=== PATIENT | female | born 1990 | race Caucasian/White ===

== ENCOUNTER 2017-05-09 09:22 | Outpatient (CLI) | payer MEDICAID ==
[2017-05-09 11:57] VITALS: BP 117/67
== END 2017-05-09 13:15 | disposition home or self-care (01) ==
LOC: TRG 09:22
PROVIDERS: ATTEND Obstetrics & Gynecology
DX: O48.0 Post-term pregnancy (principal); Z3A.40 40 weeks gestation of pregnancy
CPT/HCPCS: 59025

== ENCOUNTER 2017-05-13 00:25 | Inpatient (IN) | payer MEDICAID ==
[2017-05-13] MEDS ORDERED: NORMOSOL-R PH 7.4 2,000 ML IV ONE (01:08)
[2017-05-13] MEDS ORDERED: ePHEDrine SULFATE IV PRN ×2 (01:12→02:39)
[2017-05-13] MEDS ORDERED: BRETHINE IVP PRN (01:12)
[2017-05-13] MEDS ORDERED: BRETHINE SUB-Q PRN (01:12)
[2017-05-13] MEDS ORDERED: SUBLIMAZE IV PRN (01:17)
[2017-05-13 01:39] LABS: Hematocrit 30.9 % (30.3-42.9); Mean Corpuscular HGB Conc 32 % (30-34); Mean Corpuscular Volume 73 fl (79-97); Platelet Count 209 K/mm3 (140-440); Red Blood Count 4.25 M/mm3 (3.65-5.03); Red Cell Distribution Width 17.2 % (13.2-15.2)
[2017-05-13 01:41] LABS: Mean Corpuscular Hemoglobin 24 pg (28-32)
[2017-05-13] MEDS ORDERED: NORMOSOL-R PH 7.4 1,000 ML IV SCH (02:00)
[2017-05-13] MEDS ORDERED: XYLOCAINE 2% INFILTRATI ONE (02:13)
[2017-05-13] MEDS ORDERED: XYLOCAINE MPF 2% ONE ×2 (02:19→02:21)
[2017-05-13] MEDS ORDERED: MINERAL OIL PO PRN (02:39)
[2017-05-13] MEDS ORDERED: LANSINOH TP PRN (02:41)
[2017-05-13] MEDS ORDERED: DULCOLAX PR PRN (02:41)
[2017-05-13] MEDS ORDERED: NORCO 5/325 PO PRN (02:41)
[2017-05-13] MEDS ORDERED: BENADRYL PO PRN (02:41)
[2017-05-13] MEDS ORDERED: TUCKS PAD TP PRN (02:41)
[2017-05-13] MEDS: PITOCin/NS 20 UNIT/1000ML DRIP 20 UNITS/1,000 ML BAG IV SCH ×2 (02:44→03:22)
[2017-05-13] MEDS: MINERAL OIL PO PRN ×2 (02:44→02:46)
--- NOTE | 2017-05-13 02:50 | History and Physical Report ---
History of Present Illness Date of examination: 05/13/17 Date of admission: 05/13/17 01:00 Chief complaint: Intense Labor Pains History of present illness: Early entry to care, some care at [facility] and some at [facility]. course is unremarkakle. States GBS was done at [facility] and states it is Negative. Past History Past Medical History: other (hx of depression) Past Surgical History: no surgical history Family/Genetic History: heart disease (family hx of heart murmur) Social history: no significant social history, single - Obstetrical History Expected Date of Delivery: 05/06/17 Actual Gestation: 41 Week(s) 0 Day(s) : 3 Para: 2 Hx # Term Pregnancies: 2 Number of Living Children: 2 #1 Infant Gender: Male year: 2,013 Birthweight: 3.345 kg Method of Delivery: Vaginal Gestational age at delivery: 41 Complications: none #2 Gender: Female year: 2,015 Birthweight: 3.175 kg Method of Delivery: Vaginal Complications: none Medications and Allergies Allergies Allergy/AdvReac Type Severity Reaction Status Date / Time No Known Allergies Allergy Unverified 08/03/14 03:51 Home Medications Medication Instructions Recorded Confirmed Last Taken Type Pnv,Calcium 72/Iron/Folic Acid 1 tab PO DAILY 08/03/14 05/13/17 1 Day Ago History [ Vitamin with Low Iron] ~05/12/17 Active Meds: Active Medications Acetaminophen/Hydrocodone Bitart ([place] 5/325) 2 each PO Q6H PRN PRN Reason: Pain, Moderate (4-6) Bisacodyl (Dulcolax) 10 mg SD BID PRN PRN Reason: Constipation Diphenhydramine HCl (Benadryl) 25 mg PO Q6H PRN PRN Reason: Itching Ephedrine Sulfate (Ephedrine Sulfate) 10 mg IV Q2M PRN PRN Reason: Hypotension Ephedrine Sulfate (Ephedrine Sulfate) 10 mg IV Q2M PRN PRN Reason: Hypotension Fentanyl (Sublimaze) 100 mcg IV Q2H PRN PRN Reason: Labor pain Ferrous Sulfate (Feosol) 325 mg PO BID DELIA Parenteral Electrolytes (Normosol-R Ph 7.4) 1,000 mls @ 125 mls/hr IV DIRECT DELIA Oxytocin/Sodium Chloride (Pitocin/Ns 20 Unit/1000ml Drip) 20 units in 1,000 mls @ 125 mls/hr IV DIRECT DELIA Ibuprofen (Motrin) 600 mg PO Q6H DELIA Mineral Oil (Mineral Oil) 30 ml PO QHS PRN PRN Reason: Constipation Mineral Oil (Mineral Oil) 30 ml PO QHS PRN PRN Reason: Constipation Multi-Ingredient Ointment (Lansinoh) 1 applic TP PRN PRN PRN Reason: Sore Nipples Multivitamins/Iron/Calcium ( Vitamin) 1 each PO QDAY DELIA Sodium Chloride (Sodium Chloride Flush Syringe 10 Ml) 10 ml IV PRN NR Witch Dunia/Glycerin (Tucks Pad) 1 each TP PRN PRN PRN Reason: Hemorrhoid/cleansing/soothing Review of Systems All systems: negative - Vital Signs Vital signs: Vital Signs Temp Resp BP 99.3 F 22 138/61 05/13/17 01:26 05/13/17 01:26 05/13/17 01:26 Temp Pulse Resp BP Pulse Ox 99.3 F 93 H 22 113/56 05/13/17 01:26 05/13/17 02:45 05/13/17 01:26 05/13/17 02:45 - Physical Exam Breasts: Positive: normal Cardiovascular: Regular rate Lungs: Positive: Clear to auscultation, Normal air movement Abdomen: Positive: normal appearance, soft, normal bowel sounds Genitourinary (Female): Positive: normal external genitalia, normal perenium Vagina: Positive: normal moisture Uterus: Positive: enlarged Anus/Rectum: Positive: normal perianal skin Extremities: Positive: normal - Obstetrical FHR: category 1 Uterine Contraction Monitor Mode: External Cervical Dilatation: 9 (Clear fluid upon AROM) Cervical Effacement Percentage: 100 station: 0 Uterine Contraction Pattern: Regular Uterine Tone Measurement Phase: Resting Uterine Contraction Intensity: Strong/Firm Results Result Diagrams: 05/13/17 01:00 Abnormal lab results 05/13/17 Range/Units 01:00 Hgb 10.0 L (10.1-14.3) gm/dl MCV 73 L (79-97) fl MCH 24 L (28-32) pg RDW 17.2 H (13.2-15.2) % All other labs normal. Assessment and Plan A: IUP @ 41 Weeks Active Labor Category I Tracing GBS Unknown P: Admit to L&D per routine orders Expect
--- NOTE | 2017-05-13 02:59 | Procedure Note ---
OB Delivery Note - Delivery Date of Delivery: 05/13/17 (0206) Surgeon: AYLIN DIAZ Estimated blood loss: 300cc - Vaginal Delivery presentation: vertex Delivery position: OA Delivery induction: none Delivery augmentation: rupture of membranes Delivery monitor: external FHT, external uterine Route of delivery: Delivery placenta: spontaneous Delivery cord: nuchal cord, 3 umbilical vessels Episiotomy: none Delivery laceration: 1st degree Delivery repair: vicryl Anesthesia: local Delivery comments: of a live 9'3 female over a 1st degree perineal laceration under IV pain control with Apgars of 3 and 9 at 0206 on 05/13/2017. Nuchal cord x 1 easily manually reduced on the perineum prior to delivery of the anterior shoulder. Cord double clamped and cut by TOM Diaz, and placed on warmer. Cord blood gasses collected X 2. Spontaneous delivery of placenta complete and intact with Franco side presenting at 0211. Fundus is firm and midline located 4 below the U. Lochia is scant. Perineal laceration repaired with 2-[address]-1 under local 2% Lidocaine. - A at 1 minute: 3 at 5 minutes: 9 Infant Gender: Female
[2017-05-13] MEDS ORDERED: XYLOCAINE MPF 2% INFILTRATI ONE (03:00)
[2017-05-13] MEDS ORDERED: SODIUM CHLORIDE FLUSH SYRINGE 10 ML IV PRN (03:00)
[2017-05-13] MEDS: MOTRIN PO SCH ×2 (11:31→17:10)
[2017-05-13] MEDS: FEOSOL PO SCH ×2 (11:31→22:55)
[2017-05-13] MEDS: PRENATAL VITAMIN PO SCH (11:31)
[2017-05-13 14:27] LABS: Hematocrit 32.1 % (30.3-42.9); Hemoglobin 10.4 gm/dl (10.1-14.3)
[2017-05-14] MEDS: MOTRIN PO SCH ×3 (00:32→12:45)
[2017-05-14] MEDS ORDERED: M-M-R II VACCINE SUB-Q ONE (08:00)
--- NOTE | 2017-05-14 09:30 | Progress Note ---
Assessment and Plan - Patient Problems (1) (normal spontaneous vaginal delivery) Current Visit: Yes Status: Acute Plan to address problem: PPD 2 - stable Discharge home 05/15/17 F/U at [facility] in 6 weeks for PP exam Subjective - Subjective Date of service: 05/14/17 Principal diagnosis: Normal Spontaneous Vaginal Delivery Patient reports: appetite normal, voiding normally, pain well controlled, ambulating normally : in NICU Objective - Vital Signs Latest vital signs: Vital Signs Temp Pulse Resp BP BP Pulse Ox 05/14/17 07:54 98.0 F 77 18 92/54 96 05/14/17 00:05 98.2 F 84 16 123/52 05/13/17 16:20 98.2 F 18 102/54 05/13/17 12:50 99.2 F 18 105/56 Intake and Output 05/13/17 05/14/17 05/14/17 23:59 07:59 15:59 Intake Total 480 120 Output Total 800 Balance -320 120 Intake: Oral 240 Intake, Free Water 240 120 Output: Urine 800 Void 800 Other: Total, Intake Amount 240 Total, Output Amount 800 # Voids Void 1 1 - Exam Cardiovascular: Present: Regular rate, Normal S1, Normal S2, No murmurs Lungs: Present: Clear to auscultation, Normal air movement Abdomen: Present: normal appearance, soft Vulva: both: laceration/episiotomy Uterus: Present: normal, firm, fundal height below umbilicus Extremities: Present: normal Deep Tendon Reflex Grade: Normal +2
--- NOTE | 2017-05-14 09:31 | Discharge Summary ---
Providers - Providers Date of Admission: 05/13/17 01:00 Date of discharge: 05/15/17 Attending physician: LISA CARDONA MD Primary care physician: LISA CARDONA MD Hospitalization Reason for admission: active labor, IUP at term Delivery: Episiotomy: none Laceration: 1st degree (perineal) Other procedures: none complications: none Discharge diagnosis: IUP at term delivered baby: female Hospital course: Uncomplicated Condition at discharge: Stable Disposition: DC-01 TO HOME OR SELFCARE - Discharge Diagnoses (1) (normal spontaneous vaginal delivery) Status: Acute Plan - Provider Discharge Summary Activity: routine, no sex for 6 weeks, no heavy lifting 4 weeks, no strenuous exercise Diet: routine Instructions: routine Additional instructions: [] Smoking cessation referral if applicable(refer to patient education folder for contact #) [] Refer to [facility]'s [facility] Booklet Call your doctor immediately for: * Fever > 100.5 * Heavy vaginal bleeding ( >1 pad per hour) * Severe persistent headache * Shortness of breath * Reddened, hot, painful area to leg or breast * Drainage or odor from incision. * Keep incision clean and dry at all times and follow doctor's instructions regarding bathing/showering - Follow up plan Follow up: LISA CARDONA MD [Primary Care Provider] - 6 Weeks (Follow up at [facility] in 6 weeks for PP exam)
[2017-05-14] MEDS: PRENATAL VITAMIN PO SCH (11:01)
[2017-05-14] MEDS: FEOSOL PO SCH (11:01)
[2017-05-15] MEDS: FEOSOL PO SCH (00:16)
[2017-05-15] MEDS: MOTRIN PO SCH ×2 (00:18→06:46)
[2017-05-15] MEDS ORDERED: M-M-R II VACCINE SUB-Q ONE (06:00)
[2017-05-15 08:47] VITALS: BP 109/68
== END 2017-05-15 11:00 | disposition home or self-care (01) | DRG 775 ==
LOC: TRG 00:25 → LD 01:00 → OB 04:35
PROVIDERS: ADMIT Obstetrics & Gynecology; ATTEND Obstetrics & Gynecology
PROC: 10E0XZZ Delivery of Products of Conception, External Approach (ICD-10-PCS; principal; 2017-05-13)
PROC: 3E0234Z Introduction of Serum, Toxoid and Vaccine into Muscle, Percutaneous Approach (ICD-10-PCS; 2017-05-13)
PROC: 0HQ9XZZ Repair Perineum Skin, External Approach (ICD-10-PCS; 2017-05-13)
DX: O69.81X0 Labor and delivery complicated by cord around neck, without compression, not applicable or unspecified (principal); O70.0 First degree perineal laceration during delivery; Z3A.41 41 weeks gestation of pregnancy; Z37.0 Single live birth; Z23 Encounter for immunization; O99.344 Other mental disorders complicating childbirth; F32.9 Major depressive disorder, single episode, unspecified
CPT/HCPCS: 36415; 82803; 85014; 85018; 85027; 86592; 86850; 86900; 86901; 90471; 90707; 99211; G0463; J2590

== ENCOUNTER 2019-02-27 18:55 | Outpatient (CLI) | payer MEDICAID ==
[2019-02-27 19:49] VITALS: BP 114/53
--- NOTE | 2019-02-27 21:50 | Ultrasound Report ---
OB Ultrasound Biophysical profile HISTORY: DECREASED FM. TECHNIQUE: Grayscale and color Doppler imaging performed. COMPARISON: No recent comparison exam available FINDINGS: There is a single viable intrauterine gestation which is cephalic in presentation. MITCHELL is 9 cm. Placenta is right lateral in position. Heart rate is 133 bpm. On biophysical profile, the fetus received a score of 2 out of 2 for movement, breathing, tone, and A FI. Total score was 8 out of 8. IMPRESSION: 1. Single viable intrauterine gestation as above. 2. Normal BPP. Signer Name: Nas Smith MD Signed: 02/27/2019 9:45 PM Workstation Name: [id number]
== END 2019-02-27 22:01 | disposition home or self-care (01) ==
LOC: TRG 18:55 → LD 19:00 → TRG 19:35
PROVIDERS: ATTEND Obstetrics & Gynecology
DX: O36.8130 Decreased fetal movements, third trimester, not applicable or unspecified (principal); Z3A.40 40 weeks gestation of pregnancy
CPT/HCPCS: 59025; 76815; 76819

== ENCOUNTER 2019-03-07 08:46 | Inpatient (IN) | payer MEDICAID ==
[2019-03-07] MEDS ORDERED: LACTATED RINGERS 1,000 ML ONE (09:05)
[2019-03-07] MEDS ORDERED: MINERAL OIL 30 ML ORAL LIQD PO PRN (10:18)
[2019-03-07] MEDS ORDERED: TERBUTALINE 1 MG/1 ML INJ SUB-Q PRN (10:18)
[2019-03-07] MEDS ORDERED: LIDOCAINE (2%) 20 MG/1 ML VIAL 20 ML MDV INFILTRATI ONE (10:18)
[2019-03-07] MEDS ORDERED: BUTORPHANOL 2 MG/1 ML INJ IV PRN (10:18)
[2019-03-07] MEDS ORDERED: ePHEDrine SULFATE 50 MG/1 ML INJ IV PRN ×2 (10:18→20:12)
[2019-03-07] MEDS ORDERED: fentaNYL 100 MCG/2 ML INJ IV PRN (10:18)
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
[2019-03-07] MEDS ORDERED: OXYTOCIN 20 UNIT/1000ML DRIP 20 UNITS/1,000 ML BAG IV SCH (11:00)
[2019-03-07] MEDS ORDERED: LACTATED RINGERS 1,000 ML IV SCH (11:00)
[2019-03-07] MEDS ORDERED: OXYTOCIN DRIP 30 UNITS/500 ML BAG IV SCH (11:00)
[2019-03-07 11:21] LABS: Hematocrit 35.1 % (30.3-42.9); Hemoglobin 11.3 gm/dl (10.1-14.3); Mean Corpuscular HGB Conc 32 % (30-34); Mean Corpuscular Volume 77 fl (79-97); Platelet Count 201 K/mm3 (140-440); Red Blood Count 4.55 M/mm3 (3.65-5.03); Red Cell Distribution Width 18.2 % (13.2-15.2)
[2019-03-07] MEDS ORDERED: DEXMEDETOMIDINE 200 MCG/2 ML VIAL IV ONE (19:51)
[2019-03-07] MEDS ORDERED: NALOXONE 2 MG/2 ML INJ IV PRN (20:12)
--- NOTE | 2019-03-07 20:14 | Anesthesia Consultation ---
Anesthesia Consult and Med Hx Date of service: 03/07/19 - Airway Anesthetic Teeth Evaluation: Good ROM Head & Neck: Adequate Mental/Hyoid Distance: Adequate Mallampati Class: Class II Intubation Access Assessment: Good - Pulmonary Exam CTA: Yes - Cardiac Exam Cardiac Exam: RRR - Pre-Operative Health Status ASA Pre-Surgery Classification: ASA2, Emergency Proposed Anesthetic Plan: Epidural - Pulmonary Hx Smoking: No Hx Asthma: No COPD: No Hx Pneumonia: No - Cardiovascular System Hx Hypertension: No - Central Nervous System Hx Seizures: No Hx Back Pain: Yes Hx Psychiatric Problems: No - Gastrointestinal Hx Gastroesophageal Reflux Disease: Yes - Endocrine Hx Renal Disease: No Hx End Stage Renal Disease: No Hx Hypothyroidism: No Hx Hyperthyroidism: No - Hematic Hx Anemia: No Hx Sickle Cell Disease: No - Other Systems Hx Alcohol Use: No Hx Obesity: Yes
[2019-03-07] MEDS ORDERED: miSOPROStol 200 MCG TAB ONE (20:18)
[2019-03-07] MEDS ORDERED: fentaNYL-BUPIV 2 MCG/ML-0.125% 200 MCG/100 ML BAG EPIDURAL SCH (21:00)
[2019-03-07] MEDS ORDERED: miSOPROStol 200 MCG TAB PR ONE (22:15)
[2019-03-07] MEDS ORDERED: MAGNESIUM HYDROXIDE (MOM) ORAL LIQD UDC PO PRN (22:33)
[2019-03-07] MEDS ORDERED: WITCH HAZEL/ GLYCERIN PAD TP PRN (22:33)
[2019-03-07] MEDS ORDERED: LANOLIN/ZINC/DIMETHICONE (LANSINOH) 7 GM TP PRN (22:33)
[2019-03-07] MEDS ORDERED: HYDROcodone/ACETAMINOPHEN 5-325 MG TAB PO PRN (22:33)
--- NOTE | 2019-03-07 22:33 | Procedure Note ---
OB Delivery Note - Delivery Date of Delivery: 03/07/19 Surgeon: CLAYTON CLINTON Estimated blood loss: 200cc - Vaginal Delivery presentation: vertex Delivery position: OA Intrapartum events: shoulder dystocia, other(please specify) (nuchal cord times 2) Delivery induction: oxytocin Delivery augmentation: rupture of membranes Delivery monitor: external FHT, external uterine Route of delivery: Delivery placenta: spontaneous Delivery cord: nuchal cord, 3 umbilical vessels Episiotomy: none Delivery laceration: 1st degree Delivery repair: vicryl Anesthesia: epidural Delivery comments: Spontaneous vaginal delivery at 21:54 of liveborn male infant weighing 8 lb. 11 oz. over intact perineum with apgars of 7/8. Tight nuchal cord times 2, manually reduced. Left anterior shoulder dystocia resolved with delivery of posterior arm. Baby placed skin to skin with mom immediately after . Spontaneous cry and respirations. Baby suctioned with bulb syringe, dried and stimulated. Spontaneous delivery of intact placenta and membranes by rutledge mechanism. EBL 200 cc. Pitocin to IV fluids after delivery of placenta. Fundus firm and midline. Vaginal sweep negative. First degree perineal laceration repaired with 2-0 vicryl. No other lacerations noted. Sponge count correct. Mother and baby stable.
[2019-03-08] MEDS ORDERED: TETANUS,DIPH,PERTUSS(ACELL) VACCINE 0.5 ML SYRINGE IM ONE (06:00)
[2019-03-08] MEDS: IBUPROFEN 600 MG TAB PO SCH ×4 (06:15→23:11)
[2019-03-08] MEDS ORDERED: FLU VACC QUAD 2019-20 (3 YR UP)/PF 60 MCG/0.5 ML SYRINGE IM ONE (12:00)
[2019-03-08 12:36] LABS: Hematocrit 29.2 % (30.3-42.9); Hemoglobin 9.5 gm/dl (10.1-14.3)
[2019-03-08] MEDS: DOCUSATE SODIUM 100 MG CAP PO SCH ×2 (13:10→23:11)
--- NOTE | 2019-03-08 14:06 | Progress Note ---
Assessment and Plan A: day 1 S/P . Anemia. P: Supplement with iron. Anticipate discharge tomorrow if patient continues to do well. Subjective - Subjective Date of service: 03/08/19 Principal diagnosis: day 1 S/P Interval history: day 1 S/P . Doing well. Voiding without difficulty and ambulating well and tolerating a regular diet. Patient reports: appetite normal, voiding normally, pain well controlled, flatus, ambulating normally, no dizzy ambulation, no nauseated [place]: doing well Objective - Vital Signs Latest vital signs: Vital Signs Temp Pulse Resp BP BP Pulse Ox 03/08/19 11:38 98.9 F 81 20 93/45 98 03/08/19 07:16 97.9 F 75 20 104/42 94 03/08/19 00:30 98.7 F 83 18 126/53 96 03/08/19 00:00 78 115/65 98 03/07/19 23:58 85 115/56 03/07/19 23:55 80 97 03/07/19 23:54 82 117/67 03/07/19 23:51 83 109/65 03/07/19 23:50 84 97 03/07/19 23:49 84 107/56 03/07/19 23:46 86 137/63 03/07/19 23:45 84 97 03/07/19 23:43 85 112/66 03/07/19 23:41 83 93 03/07/19 23:40 89 99 03/07/19 23:37 83 111/59 03/07/19 23:35 80 167/81 97 03/07/19 23:30 88 97 03/07/19 23:25 74 113/60 98 03/07/19 23:20 81 97 03/07/19 23:18 71 116/67 03/07/19 23:15 78 115/63 98 03/07/19 23:12 84 116/64 03/07/19 23:10 86 98 03/07/19 23:09 81 114/62 03/07/19 23:06 83 118/60 03/07/19 23:05 75 98 03/07/19 23:03 76 117/56 03/07/19 23:01 83 120/59 03/07/19 23:00 79 99 03/07/19 22:57 75 97/56 03/07/19 22:55 80 99 03/07/19 22:54 77 98/52 03/07/19 22:52 77 90/47 03/07/19 22:50 88 98 03/07/19 22:49 83 90/53 03/07/19 22:46 81 70/42 03/07/19 22:45 78 98 03/07/19 22:42 85 103/55 03/07/19 22:40 84 98 03/07/19 22:39 89 104/56 03/07/19 22:37 81 107/56 03/07/19 22:35 85 98 03/07/19 22:33 81 101/61 03/07/19 22:30 83 95/50 97 03/07/19 22:28 84 98/53 03/07/19 22:25 96 H 97 03/07/19 22:24 80 109/60 03/07/19 22:21 86 108/58 03/07/19 22:20 85 97 03/07/19 22:18 83 105/52 03/07/19 22:15 84 104/54 98 03/07/19 22:13 85 108/53 03/07/19 22:10 78 124/65 98 03/07/19 22:07 86 120/67 03/07/19 22:05 88 99 03/07/19 22:01 81 104/59 03/07/19 22:00 84 99 03/07/19 21:58 80 100/66 03/07/19 21:55 82 102/70 100 03/07/19 21:52 90 115/74 03/07/19 21:50 90 100 03/07/19 21:49 65 105/60 03/07/19 21:45 75 103/55 100 03/07/19 21:42 69 100/54 03/07/19 21:40 80 100 03/07/19 21:39 80 97/51 03/07/19 21:37 72 93/47 03/07/19 21:35 72 100 03/07/19 21:34 76 106/51 03/07/19 21:30 67 97/45 100 03/07/19 21:29 73 100/50 03/07/19 21:28 84 90/46 03/07/19 21:25 76 92/53 100 03/07/19 21:22 84 129/67 03/07/19 21:19 79 100 03/07/19 21:18 77 111/55 03/07/19 21:15 79 123/60 03/07/19 21:14 86 100 03/07/19 21:12 76 115/56 03/07/19 21:09 75 119/59 100 03/07/19 21:06 85 03/07/19 21:04 82 116/62 100 03/07/19 21:01 84 119/64 03/07/19 20:58 79 100 03/07/19 20:57 71 116/57 03/07/19 20:55 68 122/60 03/07/19 20:53 72 100 03/07/19 20:52 87 120/72 03/07/19 20:49 89 112/66 03/07/19 20:48 90 100 03/07/19 20:45 75 116/76 03/07/19 20:43 85 114/69 100 03/07/19 20:39 80 108/61 03/07/19 20:38 77 100 03/07/19 20:36 76 106/63 03/07/19 20:33 85 105/61 100 03/07/19 20:30 80 99/57 03/07/19 20:28 80 98 03/07/19 20:27 96 H 94/55 03/07/19 20:24 82 104/54 03/07/19 20:22 88 97 03/07/19 20:21 73 105/55 03/07/19 20:18 76 100/58 03/07/19 20:17 76 98 03/07/19 20:15 73 110/56 03/07/19 20:12 80 113/56 98 03/07/19 20:10 90 113/56 03/07/19 20:07 97 H 124/66 97 03/07/19 20:04 81 136/64 03/07/19 20:02 90 99 03/07/19 20:00 77 147/81 03/07/19 19:58 81 142/79 03/07/19 19:57 83 99 03/07/19 19:52 69 98 03/07/19 19:44 82 115/58 98 03/07/19 19:39 87 100 03/07/19 19:34 84 100 03/07/19 19:29 86 97 03/07/19 19:24 91 H 98 03/07/19 19:23 70 84 03/07/19 19:19 91 H 97 03/07/19 19:17 81 94 03/07/19 19:14 82 95 03/07/19 19:11 88 94 03/07/19 19:09 95 H 96 03/07/19 19:04 81 95 03/07/19 19:02 87 94 03/07/19 19:00 98.1 F 03/07/19 18:59 95 H 97 03/07/19 18:54 92 H 99 03/07/19 18:50 83 94 03/07/19 18:49 81 97 03/07/19 18:44 85 99 03/07/19 18:42 79 131/71 03/07/19 18:39 86 99 03/07/19 18:34 91 H 98 03/07/19 18:29 79 96 03/07/19 18:25 116 H 94 03/07/19 18:24 111 H 97 03/07/19 18:19 85 99 03/07/19 18:14 79 97 03/07/19 18:09 81 98 03/07/19 18:04 96 H 98 03/07/19 17:59 84 98 03/07/19 17:54 81 98 03/07/19 17:49 83 98 03/07/19 17:44 79 98 03/07/19 17:43 83 121/71 03/07/19 17:39 93 H 98 03/07/19 17:34 94 H 98 03/07/19 17:16 98 H 98 03/07/19 17:11 85 98 03/07/19 17:06 84 98 03/07/19 17:01 90 99 03/07/19 16:56 98 H 98 03/07/19 16:51 85 98 03/07/19 16:46 88 98 03/07/19 16:43 80 123/67 03/07/19 16:41 91 H 98 03/07/19 16:36 88 98 03/07/19 16:31 97 H 98 03/07/19 16:26 89 98 03/07/19 16:21 107 H 98 03/07/19 16:16 89 98 03/07/19 16:11 98 H 98 03/07/19 16:06 89 98 03/07/19 16:01 91 H 97 03/07/19 15:56 88 97 03/07/19 15:51 92 H 97 03/07/19 15:46 90 98 03/07/19 15:43 82 131/70 03/07/19 15:41 89 98 03/07/19 15:36 86 98 03/07/19 15:31 88 98 03/07/19 15:26 81 98 03/07/19 15:21 107 H 98 03/07/19 15:07 103 H 98 03/07/19 15:02 97 H 94 03/07/19 14:57 87 95 03/07/19 14:52 105 H 96 03/07/19 14:47 100 H 96 03/07/19 14:44 95 H 115/54 03/07/19 14:42 103 H 97 03/07/19 14:37 94 H 96 03/07/19 14:32 90 97 03/07/19 14:27 92 H 96 03/07/19 14:22 88 97 03/07/19 14:17 100 H 98 03/07/19 14:12 101 H 96 03/07/19 14:07 92 H 98 Intake and Output 03/07/19 03/08/19 03/08/19 23:59 07:59 15:59 Intake Total 19.167 120 Output Total 200 400 Balance -180.833 -400 120 Intake: IV 19.167 PITOCin/NS 30 UNIT/500ML 19.167 30 units In 500 ml @ 2 mls/hr IV TITR DELIA Rx#: [id number] Oral 120 Output: Urine 200 400 Indwelling Catheter 200 Void 400 Other: Total, Intake Amount 120 Total, Output Amount 200 400 # Voids Void 1 1 1 Estimated Blood Loss 200 - Exam Abdomen: Present: normal appearance, soft. Absent: distention, tenderness, guarding, rigidity Uterus: Present: normal, firm, fundal height below umbilicus. Absent: tenderness Extremities: Present: normal - Labs Labs: Abnormal lab results 03/08/19 Range/Units 11:18 Hgb 9.5 L (10.1-14.3) gm/dl Hct 29.2 L (30.3-42.9) %
[2019-03-09] MEDS: IBUPROFEN 600 MG TAB PO SCH ×2 (05:26→12:00)
[2019-03-09] MEDS ORDERED: FERROUS SULFATE 325 MG TAB PO SCH (10:00)
--- NOTE | 2019-03-09 13:44 | Progress Note ---
Assessment and Plan A: day 2 S/P . Anemia secondary to and blood loss. P: Discharge patient home today. discharge instructions and warning signs discussed with patient. Advised patient to avoid intercourse, lifting, and heavy housework. Advised patient to schedule an appointment to see MD at [facility] in 6 weeks for exam and to discuss BTL. Continue PNV and iron. Patient voiced understanding of instructions. Subjective - Subjective Date of service: 03/09/19 Principal diagnosis: day 2 S/P Interval history: day 2 S/P . Doing well. Voiding without difficulty and ambulating well and tolerating a regular diet. Patient desires discharge home today. Patient plans to have BTL at 6 weeks . Patient reports: appetite normal, voiding normally, pain well controlled, flatus, ambulating normally, no dizzy ambulation, no nauseated [place]: doing well Objective - Vital Signs Latest vital signs: Vital Signs Temp Pulse Resp BP Pulse Ox 03/09/19 07:34 97.9 F 77 16 110/56 98 03/08/19 23:44 98.3 F 94 H 20 114/65 99 03/08/19 16:27 98.4 F 86 20 101/43 98 Intake and Output 03/08/19 03/09/19 03/09/19 23:59 07:59 15:59 Intake Total 360 240 360 Balance 360 240 360 Intake: Oral 360 240 360 Other: Total, Intake Amount 240 240 120 # Voids Void 1 1 1 - Exam Cardiovascular: Present: Regular rate, Normal S1, Normal S2 Lungs: Present: Clear to auscultation Abdomen: Present: normal appearance, soft. Absent: distention, tenderness, guarding, rigidity Uterus: Present: normal, firm, fundal height below umbilicus. Absent: bogginess, tenderness Extremities: Present: normal, edema (mild pedal edema bilaterally). Absent: tenderness
--- NOTE | 2019-03-09 13:49 | Discharge Summary ---
Providers - Providers Date of Admission: 03/07/19 08:46 Date of discharge: 03/09/19 Attending physician: GREGORY AYALA Primary care physician: KARO DONG MD Hospitalization Reason for admission: induction of labor Delivery: Episiotomy: none Laceration: 1st degree Other procedures: none complications: none Discharge diagnosis: IUP at term delivered [place] baby: male Pertinent studies: Labs Hospital course: Normal hospital course. Condition at discharge: Good Disposition: DC-01 TO HOME OR SELFCARE - Discharge Diagnoses (1) Term delivered Status: Acute (2) Anemia due to blood loss Status: Acute Plan - Provider Discharge Summary Activity: routine, no sex for 6 weeks, no heavy lifting 4 weeks, no strenuous exercise Diet: routine Instructions: routine Additional instructions: Continue taking your vitamin and iron supplements at home. Call your doctor immediately for: * Fever > 100.5 * Heavy vaginal bleeding ( >1 pad per hour) * Severe persistent headache * Shortness of breath * Reddened, hot, painful area to leg or breast - Follow up plan Follow up: KARO DONG MD [Primary Care Provider] - 6 Weeks
[2019-03-09 14:46] VITALS: BP 121/69
[2019-03-09] MEDS: DOCUSATE SODIUM 100 MG CAP PO SCH (14:49)
== END 2019-03-09 14:52 | disposition home or self-care (01) | DRG 775 ==
LOC: LD 08:46 → OB 03-08 01:12
PROVIDERS: ADMIT Obstetrics & Gynecology; ATTEND Obstetrics & Gynecology
PROC: 10E0XZZ Delivery of Products of Conception, External Approach (ICD-10-PCS; principal; 2019-03-07)
PROC: 0HQ9XZZ Repair Perineum Skin, External Approach (ICD-10-PCS; 2019-03-07)
PROC: 3E0R3BZ Introduction of Anesthetic Agent into Spinal Canal, Percutaneous Approach (ICD-10-PCS; 2019-03-07)
PROC: 00HU33Z Insertion of Infusion Device into Spinal Canal, Percutaneous Approach (ICD-10-PCS; 2019-03-07)
PROC: 3E0234Z Introduction of Serum, Toxoid and Vaccine into Muscle, Percutaneous Approach (ICD-10-PCS; 2019-03-08)
DX: O99.214 Obesity complicating childbirth (principal); O99.62 Diseases of the digestive system complicating childbirth; O66.0 Obstructed labor due to shoulder dystocia; O70.0 First degree perineal laceration during delivery; O69.1XX0 Labor and delivery complicated by cord around neck, with compression, not applicable or unspecified; O99.02 Anemia complicating childbirth; D64.9 Anemia, unspecified; E66.01 Morbid (severe) obesity due to excess calories; K21.9 Gastro-esophageal reflux disease without esophagitis; Z3A.40 40 weeks gestation of pregnancy; Z37.0 Single live birth; Z23 Encounter for immunization
CPT/HCPCS: 36415; 85014; 85018; 85027; 86850; 86900; 86901; 90686; 90715; G0378; J2590; J3490; J7120